=== PATIENT | female | born 1930 | race Caucasian/White ===

== ENCOUNTER 2016-11-06 23:57 | Emergency (ER) | payer OTHER ==
[2016-11-07 00:11] VITALS: O2SAT 95
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
[2016-11-07 00:51] LABS: % IMMATURE GRANULYOCYTES 0.3 % (0.0-1.1); ABSOLUTE IMMATURE GRANULOCYTES 0.03 10^3/uL (0.00-0.10); ADD DIFF? NO; ADD MORPH? NO; ADD SCAN? NO; ATYPICAL LYMPHOCYTE FLAG 20 (0-99); FRAGMENT RBC FLAG 0 (0-99); HEMATOCRIT 40.4 % (38.0-47.0); HEMOGLOBIN 13.9 g/dL (12.6-16.3); LEFT SHIFT FLG 0 (0-99); LIPEMIA HEMOLYSIS FLAG 90 (0-99); MEAN CELL HEMOGLOBIN CONCENTR. 34.4 g/dL (32.4-36.7); MEAN PLATELET VOLUME 10.6 fL (8.7-11.7); PLATELET CLUMPS FLAG 0 (0-99); PLATELET COUNT 236 10^3/uL (150-400); RED BLOOD CELL COUNT 4.49 10^6/uL (4.18-5.33); RED CELL DISTRIBUTION WIDTH 13.7 % (11.5-15.2)
[2016-11-07 01:00] LABS: COLOR YELLOW; LEUKOCYTE ESTERASE,URINE NEGATIVE (NEGATIVE); NITRITE,URINE NEGATIVE (NEGATIVE)
[2016-11-07 01:02] LABS: ANION GAP 12 mEq/L (8-16); CALCIUM 9.1 mg/dL (8.5-10.4); CARBON DIOXIDE 28 mEq/l (22-31); CHLORIDE 102 mEq/L (97-110); CREATININE 0.7 mg/dL (0.6-1.0); ETHANOL SERUM < 10 mg/dL (0-10); GLOMERULAR FILTRATION RATE > 60; GLUCOSE 121 mg/dL (70-100); SALICYLATE < 1.0 mg/dL (2.0-20.0); SODIUM 142 mEq/L (134-144)
[2016-11-07 01:02] LABS: MUCUS TRACE /lpf (NONE-1+)
[2016-11-07] MEDS ORDERED: POTASSIUM CL 20 MEQ/15 ML UDCUP PO ONE (01:35)
[2016-11-07] MEDS ORDERED: LORazepam 1 MG TAB PO ONE (01:35)
[2016-11-07 03:37] VITALS: BP 142/67; PULSE 77; RESP 16; TEMP 99.1
--- NOTE | 2016-11-07 08:52 | DX ---
PA and Lateral Chest History: Cough; evaluate for pneumonia in an 86-year-old female. No prior studies are available for c omparison. Findings: The heart and mediastinal contours are normal. Pulmonary vascularity is normal. There is mi ld elevation of the anterior aspect of the left hemidiaphragm. There is central peribronchial thicken ing. There are no alveolar opacities seen to suggest pneumonia. Minimal scoliosis and degenerative changes are noted in the spine. Impression: Findings consistent with airways disease are noted.
== END 2016-11-07 03:36 | disposition home or self-care (01) ==
LOC: EEVIPCON 23:57
DX: F03.91 Unspecified dementia, unspecified severity, with behavioral disturbance (principal); M54.9 Dorsalgia, unspecified; G89.29 Other chronic pain; J45.909 Unspecified asthma, uncomplicated
CPT/HCPCS: 80305; G0480